=== PATIENT | male | born 1965 | race Caucasian/White ===

== ENCOUNTER 2019-01-24 11:23 | Day surgery (SDC) | payer OTHER ==
[~2019-01-24] VITALS: Ht 182.9 cm; Wt 66.2 kg
--- NOTE | 2019-01-24 11:50 | NUR ---
Ambulatory in Day SurgeryPatient states colon prep results clear. History, Chart, Medications and Allergies reviewed before start of procedure.Lungs clear T/O to Auscultation. Patient confirms NPO status and agrees with scheduled surgery. Pre-Op teaching done. Pt verbalizes understanding.
--- NOTE | 2019-01-24 13:09 | NUR ---
01/24/19 1309 Fang Ascencio PATIENT DETERMINED TO BE ASA APPROPRIATE FOR PROPOFOL SEDATION PRIOR TO START OF PROCEDURE BY DR. ROBBINS. 3-LEAD EKG REVIEWED WITH PHYSICIAN PRIOR TO START OF PROCEDURE. PATIENT CONFIRMS NPO STATUS AND AGREES WITH SCHEDULED PROCEDURE. History, Chart, Medications and Allergies reviewed before start of procedure. MONITOR INTACT WITH CONTINUOUS PULSE OXIMETRY AND INTERMITTENT BP. O2 VIA N/C INTACT THROUGHOUT SEDATION/PROCEDURE, 3L NC.
--- NOTE | 2019-01-24 13:45 | NUR ---
PT TO STEPDOWN AT THIS TIME. LETHARGIC, BUT OPENS EYES TO VOICE. MD AT BEDSIDE TO SEE PATIENT.
--- NOTE | 2019-01-24 13:56 | NUR ---
PT AWAKE, DRINKING FLUIDS WITHOUT DIFFICULTY. STATES HE REMEMBERS MD BEING AT BEDSIDE AND IS ABLE TO REPEAT CONVERSATION. REVIEWED DISCHARGE INSTRUCTIONS AT THIS TIME. PT ABLE TO VERBALIZE UNDERSTANDING AND REPEAT BACK INFORMATION.
--- NOTE | 2019-01-24 14:05 | NUR ---
PT UP TO BEDSIDE -DRESSED SELF. STEADY ON FEET. IV D/C TIP INTACT. FRIEND HERE TO DRIVE PT HOME. PT D/C VIA WC.
== END 2019-01-24 23:35 | disposition home or self-care (01) ==
LOC: ORSCMMR 11:23
PROVIDERS: Internal Medicine Gastroenterology
PROC: 0DBM8ZX Excision of Descending Colon, Via Natural or Artificial Opening Endoscopic, Diagnostic (ICD-10-PCS; principal; 2019-01-24 12:30)
PROC: 0DBP8ZX Excision of Rectum, Via Natural or Artificial Opening Endoscopic, Diagnostic (ICD-10-PCS; principal; 2019-01-24 12:30)
PROC: 0DBK8ZX Excision of Ascending Colon, Via Natural or Artificial Opening Endoscopic, Diagnostic (ICD-10-PCS; principal; 2019-01-24 12:30)
DX: Z12.11 Encounter for screening for malignant neoplasm of colon (principal); D12.2 Benign neoplasm of ascending colon; K62.1 Rectal polyp; D37.4 Neoplasm of uncertain behavior of colon; K64.8 Other hemorrhoids; K57.30 Diverticulosis of large intestine without perforation or abscess without bleeding; K21.9 Gastro-esophageal reflux disease without esophagitis; F31.9 Bipolar disorder, unspecified; F20.9 Schizophrenia, unspecified
CPT/HCPCS: 88305; J2250; J2704; J7120

== ENCOUNTER 2019-11-25 06:35 | Day surgery (SDC) | payer OTHER ==
[~2019-11-25] VITALS: Ht 182.9 cm; Wt 69.1 kg
--- NOTE | 2019-11-25 07:00 | NUR ---
Ambulatory in Day Surgery History, Chart, Medications and Allergies reviewed before start of procedure.Lungs clear T/O to Auscultation. Patient confirms NPO status and agrees with scheduled surgery. Patient reports completing Chlorhexadine shower X2 prior to admission to hospital.Surgical site prepped with 2% Chlorhexidine cloth wipe.
--- NOTE | 2019-11-25 10:54 | NUR ---
LATE ENTRY 1041 RECEIVED PT FROM PACU VIA [facility]. VSS. PT WITH NO C/O PAIN OR NAUSEA. NICHOLAS CDI. PT TOLERATING ORAL FLUIDS, PUDDING AND LETICIA CRACKERS. WILL CONTINUE TO MONITOR.
--- NOTE | 2019-11-25 11:40 | NUR ---
Discharge instructions reviewed with patient. Patient verbalizes understanding. Copy given to patient to take home. Discharged via wheelchair to private car for ride home. PT STATED SATISFACTION OF CARE.
== END 2019-11-25 11:30 | disposition home or self-care (01) ==
LOC: ORSCMMR 06:35 → ORD 08:30 → ORSCMMR 11:30
PROVIDERS: Surgery
PROC: 0WUF0JZ Supplement Abdominal Wall with Synthetic Substitute, Open Approach (ICD-10-PCS; principal; 2019-11-25 08:30)
DX: K43.9 Ventral hernia without obstruction or gangrene (principal); F17.210 Nicotine dependence, cigarettes, uncomplicated; K21.9 Gastro-esophageal reflux disease without esophagitis
CPT/HCPCS: A9270-GY; C1781; J0690; J1100; J1885; J2250; J2405; J2704; J3010; J7120

== ENCOUNTER 2023-08-28 12:15 | Emergency (ER) | payer OTHER ==
[~2023-08-28] VITALS: Ht 182.9 cm; Wt 65.8 kg
[2023-08-28 15:27] VITALS: BP 117/66
== END 2023-08-28 16:50 | disposition home or self-care (01) ==
LOC: ER 12:15
DX: T18.128A Food in esophagus causing other injury, initial encounter (principal); W44.F3XA Food entering into or through a natural orifice, initial encounter
CPT/HCPCS: 70360; 99283-25